=== PATIENT | female | born 1995 | race Caucasian/White ===

== ENCOUNTER 2017-02-23 18:35 | Emergency (ER) | payer OTHER ==
[2017-02-23 18:38] VITALS: BMI 27.8
[2017-02-23] MEDS ORDERED: SODIUM CHLORIDE 1,000 ML IV STA (21:05)
[2017-02-23] MEDS ORDERED: ONDANSETRON 4 MG/2 ML VIAL IVPB ONE (21:05)
--- NOTE | 2017-02-23 21:05 | PDOC ---
History of Present Illness - History of Present Illness Initial Comments: 02/23/17 21:25 The patient is a 21 year old female with no past medical hx who presents to the ED complaining of left flank pain and a fever for two days. She notes her highest fever was between 101-102. She reports she took Advil with some relief of symptoms. The patient reports associated chills, sweats, and headache. The patient denies any dysuria, hematuria, frequency. The patient traveled to [place] in October. The patient denies nausea, vomiting, diarrhea Surgical: None <Alexandrea Pierce - Last Filed: 02/24/17 00:38> <Ginette Kirkpatrick - Last Filed: 02/24/17 02:50> - General Chief Complaint: Pain, Acute Stated Complaint: PAIN, ACUTE Time Seen by Provider: 02/23/17 19:50 Past History <Alexandrea Pierce - Last Filed: 02/24/17 00:38> - Past Medical History Anemia: No Asthma: No Cancer: No Cardiac Disorders: No - Surgical History Abdominal Surgery: No Appendectomy: No Cardiac Surgery: No Cholecystectomy: No - Psycho/Social/Smoking Cessation Hx Suicidal Ideation: No Smoking Status: No Smoking History: Never smoked Number of Cigarettes Smoked Daily: 0 Hx Alcohol Use: Yes (OCCASSIONALLY.) Drug/Substance Use Hx: No <Ginette Kirkpatrick - Last Filed: 02/24/17 02:50> - Past Medical History Allergies/Adverse Reactions: Allergies Allergy/AdvReac Type Severity Reaction Status Date / Time No Known Allergies Allergy Verified 02/23/17 18:37 Home Medications: Ambulatory Orders No Home Medications 0 dose .ROUTE UTDICT 08/27/12 Levofloxacin [Levaquin -] 500 mg PO DAILY #10 tablet 02/24/17 Review of Systems - Review of Systems Able to Perform ROS?: Yes Comments:: 02/23/17 21:26 CONSTITUTIONAL: +Fever, chills, sweats. Absent: chills, diaphoresis, generalized weakness, malaise, loss of appetite HEENT: Absent: rhinorrhea, nasal congestion, throat pain, throat swelling, difficulty swallowing, mouth swelling, ear pain, eye pain, visual Changes CARDIOVASCULAR: Absent: chest pain, syncope, palpitations, irregular heart rate, lightheadedness , peripheral edema RESPIRATORY: Absent: cough, shortness of breath, dyspnea with exertion, orthopnea, wheezing, stridor, hemoptysis GASTROINTESTINAL: Absent: abdominal pain, abdominal distension, nausea, vomiting, diarrhea, constipation, melena, hematochezia GENITOURINARY: +Left flank pain. Absent: dysuria, frequency, urgency, hesitancy, hematuria, genital pain MUSCULOSKELETAL: Absent: myalgia, arthralgia, joint swelling SKIN: Absent: rash, itching, pallor HEMATOLOGIC/IMMUNOLOGIC: Absent: easy bleeding, easy bruising, lymphadenopathy, frequent infections ENDOCRINE: Absent: unexplained weight gain, unexplained weight loss, heat intolerance, cold intolerance NEUROLOGIC: +Headache. Absent: focal weakness or paresthesias, dizziness, unsteady gait, seizure, mental status changes, bladder or bowel incontinence PSYCHIATRIC: Absent: anxiety, depression, suicidal or homicidal ideation, hallucinations. <Alexandrea Pierce - Last Filed: 02/24/17 00:38> *Physical Exam - Vital Signs Last Vital Signs Temp Pulse Resp BP Pulse Ox 102 F H 120 H 18 122/70 98 02/23/17 18:36 02/23/17 18:36 02/23/17 18:36 02/23/17 18:36 02/23/17 18:36 - Physical Exam Comments: 02/23/17 21:35 GENERAL: Well developed, well nourished. Awake and alert. No acute distress. HEENT: Normocephalic, atraumatic. PERRLA, EOMI. No conjunctival pallor. Sclera are non- icteric. Moist mucous membranes. Oropharynx is clear. NECK: Supple. Full ROM. No JVD. Carotid pulses 2+ and symmetric, without bruits. No thyromegaly. No lymphadenopathy. CARDIOVASCULAR: Regular rate and rhythm. No murmurs, rubs, or gallops. Distal pulses are 2+ and symmetric. PULMONARY: No evidence of respiratory distress. Lungs clear to auscultation bilaterally. No wheezing, rales or rhonchi. ABDOMINAL: Soft. Non-tender. Non-distended. No rebound or guarding. No organomegaly. Normoactive bowel sounds. MUSCULOSKELETAL Normal range of motion at all joints. No bony deformities or tenderness. No CVA tenderness. EXTREMITIES: No cyanosis. No clubbing. No edema. No calf tenderness. SKIN: Warm and dry. Normal capillary refill. No rashes. No jaundice. NEUROLOGICAL: Alert, awake, appropriate. Cranial nerves 2-12 intact. No deficits to light touch and temperature in face, upper extremities and lower extremities. No motor deficits in the in face, upper extremities and lower extremities. PSYCHIATRIC: Cooperative. Good eye contact. Appropriate mood and affect. <Alexandrea Pierce - Last Filed: 02/24/17 00:38> - Vital Signs Last Vital Signs Temp Pulse Resp BP Pulse Ox 102 F H 120 H 18 122/70 98 02/23/17 18:36 02/23/17 18:36 02/23/17 18:36 02/23/17 18:36 02/23/17 18:36 <Ginette Kirkpatrick - Last Filed: 02/24/17 02:50> ED Treatment Course - LABORATORY CBC & Chemistry Diagram: 02/23/17 21:45 02/23/17 21:45 - RADIOLOGY Radiograph Interpretation: 02/24/17 00:38 CT Abdomen/Pelvis FINDINGS: Lung bases are clear. The visualized cardiac chambers are normal size and configuration. There is mild left perinephric inflammation without stones or hydronephrosis. Pyelonephritis c recently passed stone or considered t Normal unenhanced liver, gallbladder, pancreas, spleen, adrenal glands and right kidney. The stomach and abdominal small and large bowel are normal. There is no aortic aneurysm. There is no significant retroperitoneal lymphadenopathy. The pelvic small and large bowel are normal. The appendix is normal. The uterus and adnexal structures are normal. Urinary bladder is unremarkable. There is no pelvic free fluid. No discrete pelvic lymphadenopathy is identified. IMPRESSION: Mild left perinephric inflammation without hydronephrosis or ureteral stone. Differential diagnoses includes a recently passed stone or pyelonephritis. THIS DOCUMENT HAS BEEN ELECTRONICALLY SIGNED Gordo Nicholas MD 02/24/2017 00:33 EST <Alexandrea Pierce - Last Filed: 02/24/17 00:38> - LABORATORY CBC & Chemistry Diagram: 02/23/17 21:45 02/23/17 21:45 <Ginette Kirkpatrick - Last Filed: 02/24/17 02:50> Medical Decision Making - Medical Decision Making 02/24/17 02:48 21 yo female p/w fever,severe left flank pain -UA+++ wbcs neg preg test ct sacn no nephrolithiasis IMP pyelonephritis -pt started on levaquin -pt has no vomiting and was able to take po and /dc home <Ginette Kirkpatrick - Last Filed: 02/24/17 02:50> *DC/Admit/Observation/Transfer - Attestations Scribe Attestion: 02/23/17 21:25 Documentation prepared by Alexandrea Pierce, acting as medical office assistant instructor for Ginette Kirkpatrick MD/DO. <Alexandrea Pierce - Last Filed: 02/24/17 00:38> <Ginette Kirkpatrick - Last Filed: 02/24/17 02:50> Diagnosis at time of Disposition: Pyelonephritis - Discharge Dispostion Disposition: HOME Condition at time of disposition: Stable - Prescriptions Prescriptions: Levofloxacin [Levaquin -] 500 mg PO DAILY #10 tablet - Referrals Referrals: Nicole Hines MD [Primary Care Provider] - - Patient Instructions Printed Discharge Instructions: DI for Kidney Infection Additional Instructions: -please take your antibiotics as directed -take tylenol or motrin for pain or fever -followup with your regular physician -return of you have any worsening
[2017-02-23] MEDS ORDERED: ACETAMINOPHEN 325 MG TABLET (FP) PO ONE (21:06)
[2017-02-23] MEDS ORDERED: ACETAMINOPHEN 325 MG TABLET (FP) ONE (21:55)
[2017-02-23] MEDS ORDERED: ONDANSETRON 4 MG/2 ML VIAL ONE (21:55)
[2017-02-23 22:25] LABS: BASOPHIL 0.4 % (0-2.0); EOSINOPHIL 0.1 % (0-4.5); MCH 28.9 pg (25.7-33.7); MCHC 33.1 g/dl (32.0-36.0); MEAN CELL VOLUME 87.3 fl (80-96); MEAN PLT VOLUME 8.2 fl (7.5-11.1); NEUTROPHILS 72.7 % (42.8-82.8); PLATELET COUNT 350 K/MM3 (134-434); RDW 13.4 % (11.6-15.6); WHITE BLOOD COUNT 12.7 K/mm3 (4.0-10.0)
[2017-02-23 23:15] LABS: URINE APPEARANCE CLOUDY; URINE BILIRUBIN NEGATIVE (NEGATIVE); URINE COLOR YELLOW; URINE GLUCOSE (UA) NEGATIVE (NEGATIVE); URINE KETONE NEGATIVE (NEGATIVE); URINE NITRITE NEGATIVE (NEGATIVE); URINE UROBILINOGEN NEGATIVE E.U./dl (0.2-1.0)
[2017-02-23 23:18] LABS: URINE BLOOD 3+ (NEGATIVE); URINE LEUK ESTERASE 3+ (NEGATIVE); URINE PROTEIN 1+ (NEGATIVE)
[2017-02-23 23:21] LABS: URINE BACTERIA RARE /hpf (NONE SEEN); URINE MUCUS RARE; URINE RBC 130 /hpf (0-3); URINE WBC 311 /hpf (3-5)
[2017-02-23] MEDS ORDERED: LEVOFLOXACIN 500 MG IVPB 100 ML IVPB ONE (23:55)
[2017-02-24 00:22] LABS: ALBUMIN 3.5 g/dl (3.4-5.0); ALK PHOS 94 U/L (45-117); ANION GAP 10 (8-16); BILIRUBIN,TOTAL 0.6 mg/dL (0.2-1.0); CALCIUM 9.3 mg/dL (8.5-10.1); CO2 29 mmol/L (21-32); GLUCOSE,RANDOM 90 mg/dL (74-106); SGOT/AST 10 U/L (15-37); SGPT/ALT 13 U/L (12-78); TOT PROT 7.6 g/dl (6.4-8.2)
[2017-02-24] MEDS ORDERED: LEVOFLOXACIN 500 MG IVPB 100 ML IVPB ONE (00:34)
[2017-02-24 00:56] VITALS: BP 118/76; PULSE 91; TEMP 98.9
== END 2017-02-24 00:56 | disposition home or self-care (01) ==
LOC: SUPCPDRO 18:35 → JER 18:35
PROC: 3E0337Z Introduction of Electrolytic and Water Balance Substance into Peripheral Vein, Percutaneous Approach (ICD-10-PCS; principal; 2017-02-23)
PROC: 3E03329 Introduction of Other Anti-infective into Peripheral Vein, Percutaneous Approach (ICD-10-PCS; 2017-02-23)
DX: N10 Acute pyelonephritis (principal)
CPT/HCPCS: 36415; 74176; 80053; 81003; 81015; 83690; 84703; 85025; 96361; 96365; 99281-25; 99283-25

== ENCOUNTER 2019-04-10 08:44 | Emergency (ER) | payer OTHER ==
[2019-04-10 08:49] VITALS: BP 125/61; TEMP 97.7; BMI 25.1
--- NOTE | 2019-04-10 08:52 | PDOC ---
History of Present Illness - General Chief Complaint: Injury Stated Complaint: RT ANKLE PAIN Time Seen by Provider: 04/10/19 08:51 History Source: Patient Exam Limitations: No Limitations Past History - Travel Traveled outside of the country in the last 30 days: No Close contact w/someone who was outside of country & ill: No - Past Medical History Allergies/Adverse Reactions: Allergies Allergy/AdvReac Type Severity Reaction Status Date / Time No Known Allergies Allergy Verified 04/10/19 08:46 Anemia: No Asthma: No Cancer: No Cardiac Disorders: No COPD: No - Surgical History Abdominal Surgery: No Appendectomy: No Cardiac Surgery: No Cholecystectomy: No - Suicide/Smoking/Psychosocial Hx Smoking Status: No Smoking History: Never smoked Number of Cigarettes Smoked Daily: 0 Hx Alcohol Use: Yes (OCCASSIONALLY.) Drug/Substance Use Hx: No Substance Use Type: None Review of Systems - Review of Systems Able to Perform ROS?: Yes Comments:: 04/10/19 08:54 CONSTITUTIONAL: Absent: fever, chills, diaphoresis, generalized weakness, malaise, loss of appetite HEENT: Absent: rhinorrhea, nasal congestion, throat pain, throat swelling, difficulty swallowing, mouth swelling, ear pain, eye pain, visual Changes MUSCULOSKELETAL: Present: R foot pain Absent: myalgias, joint swelling SKIN: Absent: rash, itching, pallor NEUROLOGIC: Absent: headache, focal weakness or paresthesias, dizziness, unsteady gait, seizure, mental status changes, bladder or bowel incontinence PSYCHIATRIC: Absent: anxiety, depression, suicidal or homicidal ideation, hallucinations. Is the patient limited Sami proficient: No *Physical Exam - Vital Signs Last Vital Signs Temp Pulse Resp BP Pulse Ox 97.7 F 59 L 16 125/61 99 04/10/19 08:47 04/10/19 08:47 04/10/19 08:47 04/10/19 08:47 04/10/19 08:47 - Physical Exam Comments: 04/10/19 08:55 GENERAL: The patient is awake, alert, and fully oriented, in no acute distress. HEAD: Normal with no signs of trauma. EYES: Pupils equal, round and reactive to light, extraocular movements intact, sclera anicteric, conjunctiva clear. EXTREMITIES: TTP of the R medial malleolus, with noted bruise. Full ROM of the R ankle. Strength intact of the lower extremities 5/5 b/l. Normal range of motion, no edema. NEUROLOGICAL: Normal speech, normal gait. PSYCH: Normal mood, normal affect. SKIN: Warm, Dry, normal turgor, no rashes or lesions noted. Medical Decision Making - Medical Decision Making 04/10/19 08:55 The patient is a 24-year-old female with no past medical history who presents to the ER this morning with right foot pain. Patient states that she banged her foot against some furniture yesterday. she states she thought the pain would go away however it has gotten worse. Denies fevers, chills, numbness and tingling and weakness to the affected extremity. A/P: Ankle pain On exam tender to palpation of the right medial malleolus with noted bruise over the area. No edema noted. Strength intact bilaterally 5 out of 5 of the ankles; full range of motion in the right ankle present. X-ray shows no acute fractures at this time. Most likely a bone bruise. We will discharge home with symptomatic relief. I discussed the physical exam findings, ancillary test results and final diagnoses with the patient. I answered all of the patient's questions. The patient was satisfied with the care received and felt comfortable with the discharge plan and treatment plan. The Patient agrees to follow up with the primary care physician/specialist within 24-72 hours. Return precautions were given. *DC/Admit/Observation/Transfer Diagnosis at time of Disposition: Acute ankle pain Qualifiers: Laterality: right Qualified Code(s): M25.571 - Pain in right ankle and joints of right foot - Discharge Dispostion Disposition: HOME Condition at time of disposition: Stable Decision to Admit order: No - Referrals Referrals: Nicole Hines MD [Primary Care Provider] - Abilio Mendes MD [Staff Physician] - - Patient Instructions Printed Discharge Instructions: DI for Ankle Pain Additional Instructions: you are evaluated for your ankle pain today. You have no broken bones on your x-ray. He most likely have a bone bruise. You may apply ice to the area for 20 minute intervals to help with her pain. You may take Motrin 600 mg every 6 hours. Do not exceed more than 3000 mg a day. Wear supportive shoes. If your symptoms do not improve in the next 2-3 days please follow-up with orthopedics. A referral has been provided for you. Return to the ER for any new or worsening symptoms. - Post Discharge Activity Forms/Work/School Notes: Back to Work
[2019-04-10 10:03] VITALS: PULSE 66
== END 2019-04-10 10:03 | disposition home or self-care (01) ==
LOC: JERFT 08:44
DX: M25.571 Pain in right ankle and joints of right foot (principal); W22.03XA Walked into furniture, initial encounter; Y92.018 Other place in single-family (private) house as the place of occurrence of the external cause; Y93.01 Activity, walking, marching and hiking; Y99.8 Other external cause status
CPT/HCPCS: 73610-TC-RT-FY; 73630-TC-RT-FY; 84703; 99281-25

== ENCOUNTER 2020-11-13 13:12 | Emergency (ER) | payer OTHER ==
[2020-11-13 13:34] VITALS: TEMP 97.9; BMI 31.1
[2020-11-13] MEDS ORDERED: diphenhydrAMINE HCL 25 MG CAPSULE (FP) PO ONE ×2 (15:08→15:44)
[2020-11-13] MEDS ORDERED: METOCLOPRAMIDE HCL 10 MG TABLET (FP) PO ONE ×2 (15:08→15:45)
[2020-11-13 16:26] LABS: BASO % 0.6 % (0-2.0); EOS % 0.6 % (0-4.5); HEMATOCRIT 39.7 % (32.4-45.2); HEMOGLOBIN 13.3 GM/dL (10.7-15.3); LYMPH % 23.4 % (8-40); MCH 29.3 pg (25.7-33.7); MCHC 33.5 g/dl (32.0-36.0); MEAN CELL VOLUME 87.5 fl (80-96); MONO % 7.4 % (3.8-10.2); PLATELET COUNT 399 K/MM3 (134-434); RBC 4.54 M/mm3 (3.60-5.2); RDW 13.3 % (11.6-15.6); WHITE BLOOD COUNT 6.9 K/mm3 (4.0-10.0)
[2020-11-13 16:51] LABS: CHLORIDE 104 mmol/L (98-107); SODIUM 136 mmol/L (136-145)
[2020-11-13 16:53] LABS: ANION GAP 6 MMOL/L (8-16); CALCIUM 9.4 mg/dL (8.5-10.1); CO2 26 mmol/L (21-32); GLUCOSE,RANDOM 83 mg/dL (74-106)
[2020-11-13 16:54] LABS: ALBUMIN 3.6 g/dl (3.4-5.0); BLOOD UREA NITROGEN 9.2 mg/dL (7-18)
[2020-11-13 16:56] LABS: CREATININE 0.9 mg/dL (0.55-1.3)
[2020-11-13 16:57] LABS: SGOT/AST 17 U/L (15-37); SGPT/ALT 17 U/L (13-61)
[2020-11-13 16:58] LABS: BILIRUBIN,TOTAL 0.4 mg/dL (0.2-1); TOT PROT 8.2 g/dl (6.4-8.2)
[2020-11-13 16:59] LABS: ALK PHOS 77 U/L (45-117)
[2020-11-13 18:20] VITALS: BP 114/70; PULSE 67
== END 2020-11-13 18:20 | disposition home or self-care (01) ==
LOC: JER 13:12
DX: H53.8 Other visual disturbances (principal); R51.9 Headache, unspecified
CPT/HCPCS: 36415; 76512; 80053; 82550; 84484; 84702; 84703; 85025; 93005; 93010; 99284-25

== ENCOUNTER 2021-11-26 13:11 | Emergency (ER) | payer OTHER ==
[2021-11-26 14:29] VITALS: BP 108/71; PULSE 76; TEMP 99; BMI 29.1
[2021-11-26] MEDS ORDERED: IBUPROFEN 600 MG TABLET (FP) PO ONE ×2 (15:47→15:51)
== END 2021-11-26 18:01 | disposition home or self-care (01) ==
LOC: JERFT 13:11
DX: S93.402A Sprain of unspecified ligament of left ankle, initial encounter (principal); X50.0XXA Overexertion from strenuous movement or load, initial encounter
CPT/HCPCS: 73610-TC-LT-FY; 73630-TC-LT; 99283-25